=== PATIENT | female | born 1960 | race Two or more races ===

== ENCOUNTER → 2022-08-25 | Outpatient (CLI) | payer OTHER ==
[2022-08-25 10:51] LABS: Calcium 9.5 mg/dL (8.5-10.1)
[2022-08-28 11:31] LABS: Creatinine, Urine 14 mg/dL (30.0-125.0)
== END | disposition home or self-care (01) ==
LOC: LAB 09:35
PROVIDERS: ATTEND Internal Medicine
DX: M81.8 Other osteoporosis without current pathological fracture (principal)
CPT/HCPCS: 36415; 82040; 82310; 82340; 82570; 83970